=== PATIENT | female | born 2005 | race Two or more races ===

== ENCOUNTER 2024-09-01 20:22 | Emergency (ER) | payer OTHER, SELFPAY ==
[2024-09-01 20:22] VITALS: BMI 20.5
[2024-09-01 20:29] VITALS: BP 118/81; PULSE 108; RESP 20; TEMP 36.8; O2SAT 100
--- NOTE | 2024-09-01 21:42 | PD.EDRME ---
Rapid Medical Screening Exam RME Arrival date/time: 09/01/24 20:22 Chief Complaint: Nausea/Vomiting/Diarrhea Time Seen by Provider: 09/01/24 21:10 Vital signs: Vital Signs Temperature 98.2 F 09/01/24 20:29 Pulse Rate 108 H 09/01/24 20:29 Respiratory Rate 20 09/01/24 20:29 Blood Pressure 118/81 09/01/24 20:29 Pulse Oximetry (%) 100 09/01/24 20:29 Oxygen Delivery Method Room Air 09/01/24 20:29 Vital signs reviewed by provider: Yes RME Narrative: 18-year-old female brought in by mom for evaluation of abdominal pain x 1 day. She reports x 13 episodes of watery diarrhea since 1700 today. She endorses multiple episodes of emesis and sharp periumbilical abdominal pain.
[2024-09-01 21:59] LABS: Basophils % (Auto) 0 % (0-2.5); Eosinophils % (Auto) 0 % (0-10); Hematocrit 40.5 % (36.0-46.0); Hemoglobin 14.4 g/dL (12.0-16.0); Immature Granulocytes % (Auto) 0 % (0-0); Immature Granulocytes Auto 0.04 Thou/mm3 (0.00-0.00); Lymphocytes # (Auto) 0.2 Thou/mm3 (1.0-4.8); Lymphocytes % (Auto) 2 % (10-50); Mean Corpuscular HGB Conc 35.6 g/dl (31.0-37.0); Mean Corpuscular Hemoglobin 31.8 pg (25.0-35.0); Mean Corpuscular Volume 89 fL (80-100); Monocytes # (Auto) 0.8 Thou/mm3 (0.0-0.8); Monocytes % (Auto) 7 % (0-12); Neutrophils # (Auto) 9.7 Thou/mm3 (1.8-7.7); Neutrophils % (Auto) 90 % (37-80); Nucleated Red Blood Cell % 0 /100 WBC (0); Platelet Count 183 Thou/mm3 (140-440); RDW Standard Deviation 37.6 fL (36.4-46.3); Red Blood Count 4.53 Miln/mm3 (4.00-5.20); White Blood Count 10.8 Thou/mm3 (4.5-11.0)
[2024-09-01 22:21] LABS: Alanine Aminotransferase 22 U/L (10-49); Albumin/Globulin Ratio 1.9 (1.2-2.2); Alkaline Phosphatase 68 U/L (46-116); Anion Gap 12 (7-16); Aspartate Amino Transferase 28 U/L (0-34); BUN/Creatinine Ratio 23 Ratio (12-20); Bilirubin,Total 1.2 mg/dL (0.3-1.2); Blood Urea Nitrogen 16 mg/dL (9-23); Carbon Dioxide 21.4 mMol/L (20.0-31.0); Chloride 106 mMol/L (98-107); Creatinine (Component) 0.7 mg/dL (0.6-1.3); Estimated Creatinine Clearance 101.4 mL/min (>60); Globulin 2.6 gm/dL (2.3-3.5); Glucose 108 mg/dL (74-106); Lipase 26 U/L (12-53); Osmolality,Calculated 279 (275-295); Potassium 4.2 mMol/L (3.4-5.1); Sodium 139 mMol/L (136-145); Total Protein 7.6 gm/dL (5.7-8.2); eGFR > 60 See Note
[2024-09-01] MEDS: SODIUM CHLORIDE 0.9% 1000 ML 1,000 ML 999 ML IV (22:21)
[2024-09-01] MEDS: ONDANSETRON INJ 2 MG/ML INJ 2 ML 4 MG IV (22:41)
[2024-09-01 23:33] LABS: Collection Type, Urine Clean Catch
--- NOTE | 2024-09-01 23:38 | EDNOTE_ITS ---
Nausea/Vomit./Diarrhea-RME/HPI General Chief complaint: Nausea/Vomiting/Diarrhea Stated complaint: N/V/D Time Seen by Provider: 09/01/24 21:10 Source: patient and family Arrival date/time: 09/01/24 20:22 Mode of arrival: ambulatory Limitations: no limitations RME / HPI RME / HPI Narrative: 18-year-old female brought in by mom for evaluation of abdominal pain x 1 day. She reports x 13 episodes of watery diarrhea since 1700 today. She endorses multiple episodes of emesis and sharp periumbilical abdominal pain. She denies fever, chills, rash, hematochezia, hematemesis, chest pain, dysuria. Denies known sick contacts and recent travel. MD complaint: nausea, vomiting, diarrhea and abdominal pain Onset (ago): day(s) Description of Vomiting: food contents and bilious Description of Diarrhea: water Associated Abdominal Pain: Yes Related Data Home Medications ?Medication ?Instructions ?Recorded ?Confirmed No Known Home Medications 08/16/18 0307/06 Allergies Allergy/AdvReac Type Severity Reaction Status Date / Time amoxicillin Allergy Mild RASH Unverified 09/01/24 22:38 Review of Systems Review of Systems Narrative Review of Systems: Per patient and mom. Constitutional Constitutional: Reports body ache(s), Reports chills, Denies fever(s), Denies headache(s), Reports poor appetite, Reports lethargy and Reports weakness ENT Ears, Nose, Mouth, and Throat: Denies headache(s) and Denies vertigo Cardiovascular Cardiovascular: Denies chest pain, Denies dyspnea and Denies leg edema Respiratory Respiratory: Denies cough and Denies dyspnea Gastrointestinal Gastrointestinal: Reports as per HPI, Reports abdominal pain, Reports loose stools, Reports nausea and Reports vomiting Genitourinary Genitourinary: Denies dysuria and Denies hematuria Musculoskeletal Musculoskeletal: Reports back pain Integumentary/Breasts Skin/Breast: Denies rash Neurologic Neurologic: Denies headache(s), Denies vertigo and Reports weakness Past Medical History Past Medical History CARDIAC: Negative Cardiac Disorders or Congestive Heart Failure RESPIRATORY: Negative Chronic Obstructive Pulmonary Disease (COPD) or Asthma GENITOURINARY: Negative Renal Disease ENDOCRINE: Negative Diabetes Mellitus Type 1 or Diabetes Mellitus Type 2 HEMATOLOGIC: Negative Sickle Cell Disease Family History FAMILY HISTORY: Negative Family Neurologic Problems, Family Psychiatric Problems, Family Respiratory Disorders, Family Cardiac Disorders, Family Gastrointestinal Problems, Family Cancer, Family Surgery or Family Anesthesia Reaction Social History SMOKING STATUS: Never smoker SECOND HAND EXPOSURE: No SUBSTANCE USE: does not use ED Exam General Limitations: Present no limitations General appearance: Present alert and other (Actively vomiting in ED.) Head Head exam: Present atraumatic and normocephalic Eye Eye exam: Present normal appearance and EOMI; Absent scleral icterus ENT ENT exam: Present mucous membranes dry Neck Neck exam: Present normal inspection and full ROM Chest Chest inspection: Present normal inspection and symmetric chest wall rise Respiratory Respiratory exam: Absent respiratory distress or wheezes Cardiovascular Cardiovascular exam: Present tachycardia Abdominal Exam Abdominal exam: Present soft, tenderness (Diffusely tender to palpation.), guarding and normal bowel sounds; Absent rebound or rigidity Back Exam Back exam: Absent CVA tenderness (R) or CVA tenderness (L) Neurological Exam Neurological exam: Present alert Psychiatric Psychiatric exam: Present agitated Skin Skin exam: Present warm, dry and normal color Course Quality Measures none Orders Category Date Time Status Bedside COVID-19 Antigen Test NOW Care 09/01/24 21:28 Completed Bedside Influenza A&B Antigen Test NOW Care 09/01/24 21:28 Completed Insert IV NOW Care 09/01/24 21:27 Completed CBC Stat Lab 09/01/24 21:43 Completed CMP [Comprehensive Metabolic Panel] Stat Lab 09/01/24 21:43 Completed HCG Qualitative,Urine Stat Lab 09/01/24 23:20 Completed Lipase Stat Lab 09/01/24 21:43 Completed UA, C/S IF [Urinalysis, C/S if Indicated] Stat Lab 09/01/24 23:20 Completed Ketorolac Inj [Toradol Inj] Med 09/01/24 23:37 Discontinued 30 mg IVP X1 ONE Ondansetron Inj [Zofran Inj] Med 09/01/24 21:45 Discontinued 4 mg IV X1 ONE Sodium Chloride 0.9% 1000 ml [Ns] 1,000 ml Med 09/01/24 22:00 Discontinued IV 999 mls/hr Sodium Chloride 0.9% 500 ml [Ns] 500 ml Med 09/01/24 21:45 Discontinued IV 999 mls/hr Reevaluation(s) Reevaluation #1: Patient reevaluated with improved clinical presentation on abdominal examination. Using shared decision making with patient and mom we will defer CT abdomen and pelvis for now. Pending UA. Time: 23:38 Vital Signs Vital signs: Vital Signs Temperature 98.2 F 09/01/24 20:29 Pulse Rate 108 H 09/01/24 20:29 Respiratory Rate 20 09/01/24 20:29 Blood Pressure 118/81 09/01/24 20:29 Pulse Oximetry (%) 100 09/01/24 20:29 Oxygen Delivery Method Room Air 09/01/24 20: Pulse ox 100% on room air, within normal limits. Nausea/Vomiting/Diarrhea MDM Narrative MDM Narrative:: Patient eloped from the ED during evaluation and treatment. 18-year-old female brought in by mom for evaluation of abdominal pain, diarrhea, nausea, and vomiting. Patient tachycardic with diffuse abdominal tenderness on exam. I ordered a CT given her diffuse tenderness and active vomiting, however patient and patient's mom requested it be discontinued after her improvement in symptoms following analgesics and IV fluids. Labs unremarkable. Unfortunately the patient and her mom eloped from the emergency department prior to UA results, which was fortunately negative for UTI or other abnormality. Some delays in treatment given to high ED volumes. Patient and mom were given the chance to ask questions and return to the ED should they decide to continue treatment and evaluation. Patient data External records reviewed:: [facility] previous records Clinical information provided by:: patient and parent Social determinants that could affect healthcare access:: none Patient has the following chronic illnesses:: None reported. How is presenting disease/condition affected by chronic disease/condition?: no chronic disease Evaluation data The following diagnostics were reviewed and interpreted by me:: lab results Lab and/or radiology exams considered but not ordered:: CT ordered but using shared decision making with mom after she requested to be discharged was discontinued. Interpretation Summary: No sign of infection on UA. No leukocytosis, mild dehydration. Negative . No evidence of endorgan damage or failure. Medications / Prescriptions Medications / Prescriptions considered but not ordered:: Rx given. Medication administrations:: Medication Administration History Discontinued Medications Sodium Chloride (Ns) 500 mls @ 999 mls/hr IV .Q31M ONE Stop: 09/01/24 22:15 Last Admin: 09/01/24 22:01 Dose: Not Given Documented By: KF Non-Admin Reason: Cancelled by Provider Sodium Chloride (Ns) 1,000 mls @ 999 mls/hr IV .Q1H1M ONE Stop: 09/01/24 23:00 Last Infusion: 09/02/24 01:17 Dose: Infused Documented By: Admin: 09/01/24 22:21 Dose: 999 mls/hr Documented By: KF Ketorolac Tromethamine (Ketorolac Inj 30 Mg/Ml Vial) 30 mg IVP X1 ONE Stop: 09/01/24 23:38 Ondansetron HCl (Ondansetron Inj 2 Mg/Ml Inj 2 Ml) 4 mg IV X1 ONE; Protocol Stop: 09/01/24 21:46 Last Admin: 09/01/24 22:41 Dose: 4 mg Documented By: KG Rx given. Consultations Consultation(s) initiated? (list below): No Diagnosis Nausea Differential Diagnosis: traveler's diarrhea, food poisoning, gastroenteritis, drug-induced nausea and vomiting, dehydration and other (Appendicitis, cystitis. ) Most likely diagnosis given after review of the tests above:: Abdominal pain. Patient eloped during evaluation treatment. Admission Indicated Admission indicated?: not indicated Admission Request Was there a request for admission?: No Disposition Plan Disposition Plan: other (specify) (Eloped.) Discharge Plan Plan Patient Disposition: Elopement Disposition Comment: stable Prescriptions/Referrals Prescriptions/Med Rec: No Action No Known Home Medications Referrals: No Primary/Family,Physician [Primary Care Provider] - In 1 week Problem List Clinical Impression: Abdominal pain, Dehydration, Vomiting, Eloped from emergency department Patient/Caregiver Discharge Instructions Print Language: Divehi Stand Alone Forms: Amanda Award Info., Patient Portal Info Letter TOY/ZACH Supervising Physician TOY/ZACH Supervising Physician: Dr. bo
[2024-09-02 00:05] LABS: Bacteria,Urine Rare; Bilirubin,Urine Negative (Negative); Blood,Urine Negative (Negative); Clarity,Urine Clear (Clear/Hazy); Color,Urine Lt-Yellow (Lt Yel-Yel); Culture Indicated,Urine Not Indicated; Glucose, Urine Negative (Negative); Ketones,Urine 2+ (Negative); Leukocyte Esterase,Urine Negative (Negative); Nitrite,Urine Negative (Negative); Protein,Urine Negative (Neg - Trace); RBC,Urine 1 /hpf (0-3); Specific Gravity,Urine 1.019 (1.001-1.035); Squamous Epithelial Cell,Urine < 1 /hpf (0-5); Urobilinogen,Urine Negative mg/dL (0.0-1.0); WBC,Urine 1 /hpf (0-5)
[2024-09-02 00:08] LABS: HCG Qualitative,Urine Negative
--- NOTE | 2024-09-02 01:18 | PC.NURSE ---
Patient's mother requested IV be removed. Patient mother stated we are leaving and not waiting to see provider. Patient did not disagree with mother. Triage nurse spoke to patient and her mother. All risks and benefits explained. Encouraged to return. Patient refused to sign out AMA. notified provider.
== END 2024-09-02 01:25 | disposition left against medical advice (07) ==
PROVIDERS: Physician Assistant; Emergency Provider Emergency Medicine
DX: E86.0 Dehydration (principal); R10.33 Periumbilical pain; Z53.29 Procedure and treatment not carried out because of patient's decision for other reasons
CPT/HCPCS: 36415; 80053; 81001; 81025; 83690; 85025; 96374; 99284; J2405; J7030